=== PATIENT | female | born 1980 | race Caucasian/White ===

== ENCOUNTER → 2016-11-10 | Outpatient (REF) | payer BC ==
[~2016-11-10] MED LIST: /ESCI20TA OR; KLON0.5T OR; ZYPR5TAB OR
[2016-11-10 16:01] LABS: BASO # 0.1 K/mm3 (0.0-0.2); BASO % 0.8 % (0.0-1.0); EOS # 0.2 K/mm3 (0.0-0.50); EOS % 2.8 % (0.0-3.0); LARGE UNSTAINED CELL # 0.1 K/mm3 (0.0-0.4); LARGE UNSTAINED CELL % 1.3 % (0.0-4.0); LYMPH # 1.9 K/mm3 (1.5-4.5); LYMPH % 23.8 % (24.0-44.0); MEAN CORPUSCULAR HEMOGLOBIN 31.1 pg (27.0-33.0); MEAN CORPUSCULAR HGB CONC 33.7 g/dl (32.0-36.5); MEAN CORPUSCULAR VOLUME 92.3 fl (80.0-96.0); MONO # 0.3 K/mm3 (0.0-0.8); MONO % 3.7 % (0.0-5.0); NEUTROPHILS % 67.6 % (36.0-66.0); PLATELET COUNT, AUTOMATED 314 k/mm3 (150-450); RED CELL DISTRIBUTION WIDTH 12.5 % (11.5-14.5); WHITE BLOOD COUNT 7.5 K/mm3 (4.0-10.0)
[2016-11-10 16:26] LABS: ALBUMIN 3.6 GM/DL (3.2-5.2); ALBUMIN/GLOBULIN RATIO 1.03 (1.00-1.93); ALKALINE PHOSPHATASE 107 U/L (45-117); ALT/SGPT 17 U/L (12-78); ANION GAP 8 MEQ/L (8-16); AST/SGOT 13 U/L (15-37); BILIRUBIN,TOTAL 0.3 MG/DL (0.2-1.0); BLOOD UREA NITROGEN 12 MG/DL (7-18); CALCIUM LEVEL 8.5 MG/DL (8.5-10.1); CARBON DIOXIDE LEVEL 28 MEQ/L (21-32); CHLORIDE LEVEL 106 MEQ/L (98-107); CHOLESTEROL LEVEL 154 MG/DL (<200); CREATININE FOR GFR 0.89 MG/DL (0.55-1.02); FREE T4 0.99 NG/DL (0.76-1.46); GLOMERULAR FILTRATION RATE > 60.0 (>60); GLUCOSE, FASTING 86 MG/DL (70-105); POTASSIUM SERUM 4.4 MEQ/L (3.5-5.1); SODIUM LEVEL 142 MEQ/L (136-145); TOTAL PROTEIN 7.1 GM/DL (6.4-8.2); TRIGLYCERIDES LEVEL 74 MG/DL (<150)
== END ==
LOC: M SFHCSACK 08:42
PROVIDERS: ATTEND Physician Assistant
DX: Z00.00 Encounter for general adult medical examination without abnormal findings (principal)

== ENCOUNTER 2017-04-12 08:31 | Inpatient (IN) | payer BC ==
[~2017-04-12] VITALS: Ht 162.6 cm; Wt 85.0 kg
[2017-04-12 09:32] LABS: MEAN CORPUSCULAR HEMOGLOBIN 30.9 pg (27.0-33.0); MEAN CORPUSCULAR VOLUME 91.1 fl (80.0-96.0); RED CELL DISTRIBUTION WIDTH 12.9 % (11.5-14.5)
[2017-04-12 09:49] LABS: CONTROL LINE HCG INT CTR LINE PRESENT
[2017-04-12 09:51] LABS: METHADONE URINE NEGATIVE (NEGATIVE)
[2017-04-12 10:02] LABS: ALBUMIN 3.6 GM/DL (3.2-5.2); ALKALINE PHOSPHATASE 99 U/L (45-117); ALT/SGPT 26 U/L (12-78); ANION GAP 12 MEQ/L (8-16); AST/SGOT 12 U/L (15-37); BILIRUBIN,DIRECT < 0.1 MG/DL (0.0-0.2); BILIRUBIN,TOTAL 0.2 MG/DL (0.2-1.0); BLOOD UREA NITROGEN 8 MG/DL (7-18); CALCIUM LEVEL 8.2 MG/DL (8.5-10.1); CARBON DIOXIDE LEVEL 21 MEQ/L (21-32); CHLORIDE LEVEL 107 MEQ/L (98-107); CREATININE FOR GFR 0.83 MG/DL (0.55-1.02); GLOMERULAR FILTRATION RATE > 60.0 (>60); GLUCOSE, FASTING 111 MG/DL (70-105); POTASSIUM SERUM 4.6 MEQ/L (3.5-5.1); SODIUM LEVEL 140 MEQ/L (136-145); TOTAL PROTEIN 7.2 GM/DL (6.4-8.2)
[2017-04-12] MEDS ORDERED: DULO1CAP3 PO (12:52)
[2017-04-12] MEDS ORDERED: DIAZ2TAB PO (12:52)
[2017-04-12] MEDS ORDERED: BUSP15TA47 PO (12:52)
[2017-04-12] MEDS ORDERED: DULO1CAP2 PO (12:52)
[2017-04-12] MEDS ORDERED: TYLE500T78 PO (12:52)
[2017-04-12 13:40] VITALS: BP 133/69
[2017-04-12 14:00] VITALS: BP 133/69
[2017-04-12] MEDS ORDERED: MOM 30ML SUSPENSION UDC PO PRN (14:00)
[2017-04-12] MEDS ORDERED: MAALOX 30 ML SUSP *UDC PO PRN (14:00)
[2017-04-12] MEDS: ACETAMINOPHEN TAB 650MG DOSE (2X325MG) PO PRN (14:24)
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
[2017-04-12] MEDS ORDERED: LORazepam 2 MG TAB PO PRN (14:30)
[2017-04-12] MEDS: busPIRone 5 MG TAB PO SCH ×2 (15:39→20:30)
[2017-04-12] MEDS: PROPRANOLOL 10 MG TAB PO SCH ×2 (15:40→20:30)
[2017-04-12] MEDS ORDERED: busPIRone 10 MG TAB PO SCH (16:00)
[2017-04-12 18:00] VITALS: BP 132/86
[2017-04-12] MEDS: traZODone 50 MG TAB PO PRN (20:29)
[2017-04-12] MEDS: DULoxetine 30 MG CAP (CYMBALTA) PO SCH (20:30)
[2017-04-12] MEDS: PRAZOSIN 1 MG CAP PO SCH (20:31)
[2017-04-13 06:34] VITALS: BP 122/56
--- NOTE | 2017-04-13 08:19 | ECGEPIP ---
Stationary ECG Study [facility] - ED Test Date: 2017-04-12 Pat Name: MAICOL MORSE Department: Room: [place] [address] Gender: F [employer] Technician: dre : 1980 Requested By: Inna Ortiz Order Number: [id number] Reading MD: Inna Ortiz Measurements Intervals Rogers Rate: 114 P: 22 LA: 145 QRS: 6 QRSD: 86 T: 11 QT: 322 QTc: 444 Interpretive Statements SINUS TACHYCARDIA ABNORMAL RHYTHM ECG NO PRIOR FOR COMPARISON Electronically Signed On 04-13-2017 8:19:07 EDT by Inna Ortiz
[2017-04-13] MEDS: DULoxetine 30 MG CAP (CYMBALTA) PO SCH ×2 (08:25→20:57)
[2017-04-13] MEDS: PROPRANOLOL 10 MG TAB PO SCH ×2 (08:25→20:58)
[2017-04-13] MEDS: busPIRone 5 MG TAB PO SCH ×3 (08:25→20:57)
[2017-04-13] MEDS ORDERED: DULoxetine 30 MG CAP (CYMBALTA) PO SCH (09:00)
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
[2017-04-13 12:07] VITALS: BP 122/56
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
[2017-04-13 18:00] VITALS: BP 107/52
[2017-04-13] MEDS: PRAZOSIN 1 MG CAP PO SCH (20:57)
[2017-04-13] MEDS: traZODone 50 MG TAB PO PRN (21:30)
[2017-04-14 06:51] LABS: MEAN CORPUSCULAR HGB CONC 33.7 g/dl (32.0-36.5); RED CELL DISTRIBUTION WIDTH 12.7 % (11.5-14.5); WHITE BLOOD COUNT 6.9 10^3/uL (4.0-10.0)
[2017-04-14 06:52] VITALS: BP 102/51
[2017-04-14 07:50] VITALS: BP 102/51
[2017-04-14] MEDS: busPIRone 5 MG TAB PO SCH ×3 (08:50→21:18)
[2017-04-14] MEDS: DULoxetine 30 MG CAP (CYMBALTA) PO SCH ×2 (08:50→21:18)
[2017-04-14] MEDS: PROPRANOLOL 10 MG TAB PO SCH ×2 (08:51→21:18)
[2017-04-14] MEDS ORDERED: INFLUENZA QUADRIVALENT PF VACCINE 0.5ML SYRINGE (90686) IM ONE (09:00)
--- NOTE | 2017-04-14 14:52 | MHIPNPDOC ---
[facility] Progress Note Progress Note DATE OF SERVICE: 04/14/17 HISTORY: . Patient with history of PTSD and depressive symptoms , currently denied any symptoms of depression, reported feeling better. No suicidal ideas. No acute symptoms of PTSD. Patient denied any side effects of medications. According to the discharge plan. She will go on outpatient rehabilitation next week. After meeting with VITAL SIGNS: See below. NEW TEST RESULTS: . CURRENT MEDICATIONS: See below. MENTAL STATUS EXAMINATION: General appearance: Patient is a 36-year old female, who appears younger than stated age, wearing hospital gown and pj bottoms, well groomed, fair eye contact , cooperative. Speech: spontaneous Thought processes: goal directed Thought content: appropriate. Abstract reasoning and computation: good. Description of associations: good. Description of abnormal or psychotic thoughts: denies plan for suicide but wishes she would , no psychotic symptoms. Judgment: fair Insight: limited Orientation: well oriented in all spheres Recent and remote memory: intact Attention span and concentration: good. Fund of knowledge: full. Mood:tired Affect: congruent DIAGNOSES: 1. . PTSD 2. . Depressive disorder 3. . MANAGEMENT PLAN: . Continue current medications. Discharge plan during the week TIME SPENT: 25 minutes. Vital Signs Vital Signs Date Time Temp Pulse Resp B/P (MAP) Pulse Ox O2 Delivery O2 Flow Rate FiO2 04/14/17 08:51 76 124/60 04/14/17 06:52 99.1 16 04/13/17 12:06 Room Air 04/12/17 13:40 100 Laboratory Data CBC/BMP Laboratory Tests 04/14/17 06:12 Red Blood Count 4.49, Mean Corpuscular Volume 92.0, Mean Corpuscular Hemoglobin 31.0, Mean Corpuscular Hemoglobin Concent 33.7, Red Cell Distribution Width 12.7 Current Medications Current Medications Acetaminophen (Tylenol Tab) 650 mg Q6HP PRN PO HEADACHE or DISCOMFORT Last administered on 04/12/17t 14:24; Start 04/12/17 at 14:00; Stop 05/12/17 at 13:59 Al Hydrox/Mg Hydrox/Simethicone (Mylanta) 30 ml Q4HP PRN PO HEARTBURN/ INDIGESTION; Start 04/12/17 at 14:00; Stop 05/12/17 at 13:59 Buspirone HCl (Buspar) 5 mg TID PO Last administered on 04/14/17 08:50; Start 04/12/17 at 16:00; Stop 05/12/17 at 15:59 Buspirone HCl (Buspar) 10 mg TID PO ; Start 04/12/17 at 16:00; Stop 04/12/17 at 16:00; Status DC Duloxetine HCl (Cymbalta) 30 mg QAM PO ; Start 04/13/17 at 09:00; Stop 04/13/17 at 09:00; Status DC Duloxetine HCl (Cymbalta) 60 mg QAM PO Last administered on 04/14/17 08:50; Start 04/13/17 at 09:00; Stop 05/13/17 at 08:59 Duloxetine HCl (Cymbalta) 60 mg QHS PO Last administered on 04/13/17 20:57; Start 04/12/17 at 21:00; Stop 05/12/17 at 20:59 Home Med (Med Rec Complete!) ASDIRECTED XX ; Start 04/12/17 at 13:00; Stop 04/12/17 at 13:00; Status DC Lorazepam (Ativan) 2 mg Q8HP PRN PO if meets CIWA protocol; Start 04/12/17 at 14:30; Stop 04/19/17 at 14:29 Magnesium Hydroxide (Milk Of Magnesia) 30 ml DAILYPRN PRN PO CONSTIPATION; Start 04/12/17 at 14:00; Stop 05/12/17 at 13:59 Prazosin HCl (Minipress) 1 mg QHS PO Last administered on 04/13/17 20:57; Start 04/12/17 at 21:00; Stop 05/12/17 at 20:59 Propranolol HCl (Inderal) 10 mg BID PO Last administered on 04/14/17 08:51; Start 04/13/17 at 21:00; Stop 05/12/17 at 15:59 Propranolol HCl (Inderal) 10 mg TID PO Last administered on 04/13/17 08:25; Start 04/12/17 at 16:00; Stop 04/13/17 at 13:51; Status DC Trazodone HCl (Desyrel) 50 mg QHSP PRN PO INSOMNIA Last administered on 21:30; Start 04/12/17 at 14:00; Stop 05/12/17 at 13:59 Allergies Coded Allergies: Codeine (Verified Allergy, Mild, RASH, VOMITING, DIZZINESS,HIVES, 10/09/12) ANA AMADOR MD Apr 14, 2017 14:49
[2017-04-14] MEDS: ACETAMINOPHEN TAB 650MG DOSE (2X325MG) PO PRN (14:58)
[2017-04-14] MEDS: PRAZOSIN 1 MG CAP PO SCH (21:18)
[2017-04-14] MEDS: traZODone 50 MG TAB PO PRN (21:18)
[2017-04-15 06:31] VITALS: BP 116/59
[2017-04-15] MEDS: DULoxetine 30 MG CAP (CYMBALTA) PO SCH ×2 (08:54→20:23)
[2017-04-15] MEDS: busPIRone 5 MG TAB PO SCH ×3 (08:54→20:23)
[2017-04-15] MEDS: PROPRANOLOL 10 MG TAB PO SCH ×2 (08:54→20:23)
[2017-04-15] MEDS: ACETAMINOPHEN TAB 650MG DOSE (2X325MG) PO PRN (12:14)
--- NOTE | 2017-04-15 15:52 | MHIPNPDOC ---
[facility] Progress Note Progress Note DATE OF SERVICE: 04/15/17 HISTORY: . Patient with history of PTSD and depressive symptoms , currently denied any symptoms of depression, reported feeling better. No suicidal ideas. No acute symptoms of PTSD. Patient denied any side effects of medications. VITAL SIGNS: See below. NEW TEST RESULTS: . CURRENT MEDICATIONS: See below. MENTAL STATUS EXAMINATION: General appearance: Patient is a 36-year old female, who appears younger than stated age, well groomed, fair eye contact, cooperative. Speech: spontaneous Thought processes: goal directed Thought content: appropriate. Abstract reasoning and computation: good. Description of associations: good. Description of abnormal or psychotic thoughts: denies plan for suicide but wishes she would , no psychotic symptoms. Judgment: fair Insight: limited Orientation: well oriented in all spheres Recent and remote memory: intact Attention span and concentration: good. Fund of knowledge: full. Mood:tired Affect: congruent DIAGNOSES: 1. . PTSD 2. . Depressive disorder 3. . MANAGEMENT PLAN: . Continue current medications. Discharge plan during the week TIME SPENT: 25 minutes. Vital Signs Vital Signs Date Time Temp Pulse Resp B/P (MAP) Pulse Ox O2 Delivery O2 Flow Rate FiO2 04/15/17 08:54 77 119/56 04/15/17 06:31 98.1 16 04/13/17 12:06 Room Air 04/12/17 13:40 100 Current Medications Current Medications Acetaminophen (Tylenol Tab) 650 mg Q6HP PRN PO HEADACHE or DISCOMFORT Last administered on 04/15/17 12:14; Start 04/12/17 at 14:00; Stop 05/12/17 at 13:59 Al Hydrox/Mg Hydrox/Simethicone (Mylanta) 30 ml Q4HP PRN PO HEARTBURN/ INDIGESTION; Start 04/12/17 at 14:00; Stop 05/12/17 at 13:59 Buspirone HCl (Buspar) 5 mg TID PO Last administered on 04/15/17 15:06; Start 04/12/17 at 16:00; Stop 05/12/17 at 15:59 Buspirone HCl (Buspar) 10 mg TID PO ; Start 04/12/17 at 16:00; Stop 04/12/17 at 16:00; Status DC Duloxetine HCl (Cymbalta) 30 mg QAM PO ; Start 04/13/17 at 09:00; Stop 04/13/17 at 09:00; Status DC Duloxetine HCl (Cymbalta) 60 mg QAM PO Last administered on 04/15/17 08:54; Start 04/13/17 at 09:00; Stop 05/13/17 at 08:59 Duloxetine HCl (Cymbalta) 60 mg QHS PO Last administered on 04/14/17 21:18; Start 04/12/17 at 21:00; Stop 05/12/17 at 20:59 Home Med (Med Rec Complete!) ASDIRECTED XX ; Start 04/12/17 at 13:00; Stop 04/12/17 at 13:00; Status DC Lorazepam (Ativan) 2 mg Q8HP PRN PO if meets CIWA protocol; Start 04/12/17 at 14:30; Stop 04/19/17 at 14:29 Magnesium Hydroxide (Milk Of Magnesia) 30 ml DAILYPRN PRN PO CONSTIPATION; Start 04/12/17 at 14:00; Stop 05/12/17 at 13:59 Prazosin HCl (Minipress) 1 mg QHS PO Last administered on 04/14/17 21:18; Start 04/12/17 at 21:00; Stop 05/12/17 at 20:59 Propranolol HCl (Inderal) 10 mg BID PO Last administered on 04/15/17 08:54; Start 04/13/17 at 21:00; Stop 05/12/17 at 15:59 Propranolol HCl (Inderal) 10 mg TID PO Last administered on 04/13/17 08:25; Start 04/12/17 at 16:00; Stop 04/13/17 at 13:51; Status DC Trazodone HCl (Desyrel) 50 mg QHSP PRN PO INSOMNIA Last administered on 21:18; Start 04/12/17 at 14:00; Stop 05/12/17 at 13:59 Allergies Coded Allergies: Codeine (Verified Allergy, Mild, RASH, VOMITING, DIZZINESS,HIVES, 10/09/12) ANA AMADOR MD Apr 15, 2017 15:52
[2017-04-15 18:00] VITALS: BP 139/62
[2017-04-15] MEDS: PRAZOSIN 1 MG CAP PO SCH (20:23)
[2017-04-15] MEDS: traZODone 50 MG TAB PO PRN (20:23)
[2017-04-16 06:59] VITALS: BP 110/53
[2017-04-16] MEDS: PROPRANOLOL 10 MG TAB PO SCH ×2 (08:20→22:14)
[2017-04-16] MEDS: busPIRone 5 MG TAB PO SCH (08:20)
[2017-04-16] MEDS: DULoxetine 30 MG CAP (CYMBALTA) PO SCH ×2 (08:21→22:14)
[2017-04-16] MEDS: busPIRone 10 MG TAB PO SCH ×3 (09:17→22:14)
[2017-04-16] MEDS: hydrOXYzine 25 MG TAB PO PRN ×2 (11:36→19:03)
--- NOTE | 2017-04-16 17:17 | MHIPNPDOC ---
[facility] Progress Note Progress Note DATE OF SERVICE: 04/16/17 HISTORY: day 5 of admission for SI and alcohol dependence. VITAL SIGNS: See below. NEW TEST RESULTS: na CURRENT MEDICATIONS: See below. MENTAL STATUS EXAMINATION: General appearance: Patient is a 36-year old female, who appears younger than stated age, well groomed, fair eye contact, cooperative. Speech: spontaneous Thought processes: goal directed Thought content: appropriate. Abstract reasoning and computation: good. Description of associations: good. Description of abnormal or psychotic thoughts: denies plan for suicide but wishes she would , no psychotic symptoms. Judgment: fair Insight: limited Orientation: well oriented in all spheres Recent and remote memory: intact Attention span and concentration: good. Fund of knowledge: full. Mood:tired Affect: congruent DIAGNOSES: 1. PTSD 2. Depressive disorder, unspecified 3. Substance use disorder ASSESSMENT:Malena has been reporting difficulty with anxiety. She is attending programming and acquiring new adaptation skills. She states she is committed to sobriety and is willing to attend [facility]. She identifies family members as support but is encouraged to expand this network to include people also in recovery from substance abuse. If she is not willing to attend AA it is recommended to her that she read AA material to help her understand the disease of alcoholism and the challenges of leading a sober life. Pt denies thoughts or intentions to harm self or others. She does not demonstrate any psychotic symptoms. Her mood is improving but anxiety remains problematic. Nightmares have improved but sleep remains elusive sometimes. Educated pt on impact of alcohol on the brain and sleep. MANAGEMENT PLAN: increase BuSpar to 10 mg tid, pt is tolerating propranolol and thinks this has been very helpful to her. Use of prn Atarax encouraged. TIME SPENT: 25 minutes. Vital Signs Vital Signs Date Time Temp Pulse Resp B/P (MAP) Pulse Ox O2 Delivery O2 Flow Rate FiO2 04/16/17 08:20 71 110/53 04/16/17 06:59 97.1 16 Room Air 04/12/17 13:40 100 Current Medications Current Medications Acetaminophen (Tylenol Tab) 650 mg Q6HP PRN PO HEADACHE or DISCOMFORT Last administered on 04/15/17t 12:14; Start 04/12/17 at 14:00; Stop 05/12/17 at 13:59 Al Hydrox/Mg Hydrox/Simethicone (Mylanta) 30 ml Q4HP PRN PO HEARTBURN/ INDIGESTION; Start 04/12/17 at 14:00; Stop 05/12/17 at 13:59 Buspirone HCl (Buspar) 5 mg TID PO Last administered on 04/16/17 08:20; Start 04/12/17 at 16:00; Stop 04/16/17 at 09:08; Status DC Buspirone HCl (Buspar) 10 mg TID PO ; Start 04/12/17 at 16:00; Stop 04/12/17 at 16:00; Status DC Buspirone HCl (Buspar) 10 mg TID PO Last administered on 04/16/17 15:43; Start 04/16/17 at 09:00; Stop 05/16/17 at 08:59 Duloxetine HCl (Cymbalta) 30 mg QAM PO ; Start 04/13/17 at 09:00; Stop 04/13/17 at 09:00; Status DC Duloxetine HCl (Cymbalta) 60 mg QAM PO Last administered on 04/16/17 08:21; Start 04/13/17 at 09:00; Stop 05/13/17 at 08:59 Duloxetine HCl (Cymbalta) 60 mg QHS PO Last administered on 04/15/17 20:23; Start 04/12/17 at 21:00; Stop 05/12/17 at 20:59 Home Med (Med Rec Complete!) ASDIRECTED XX ; Start 04/12/17 at 13:00; Stop 04/12/17 at 13:00; Status DC Hydroxyzine HCl (Atarax) 25 mg Q6HP PRN PO ANXIETY Last administered on 11:36; Start 04/16/17 at 09:15; Stop 05/16/17 at 09:14 Lorazepam (Ativan) 2 mg Q8HP PRN PO if meets CIWA protocol; Start 04/12/17 at 14:30; Stop 04/19/17 at 14:29 Magnesium Hydroxide (Milk Of Magnesia) 30 ml DAILYPRN PRN PO CONSTIPATION; Start 04/12/17 at 14:00; Stop 05/12/17 at 13:59 Prazosin HCl (Minipress) 1 mg QHS PO Last administered on 04/15/17 20:23; Start 04/12/17 at 21:00; Stop 05/12/17 at 20:59 Propranolol HCl (Inderal) 10 mg BID PO Last administered on 04/16/17 08:20; Start 04/13/17 at 21:00; Stop 05/12/17 at 15:59 Propranolol HCl (Inderal) 10 mg TID PO Last administered on 04/13/17 08:25; Start 04/12/17 at 16:00; Stop 04/13/17 at 13:51; Status DC Trazodone HCl (Desyrel) 50 mg QHSP PRN PO INSOMNIA Last administered on 20:23; Start 04/12/17 at 14:00; Stop 05/12/17 at 13:59 Allergies Coded Allergies: Codeine (Verified Allergy, Mild, RASH, VOMITING, DIZZINESS,HIVES, 10/09/12) Gina Villegas Apr 16, 2017 17:17
[2017-04-16 18:00] VITALS: BP 122/69
[2017-04-16] MEDS: ACETAMINOPHEN TAB 650MG DOSE (2X325MG) PO PRN (19:03)
[2017-04-16] MEDS: traZODone 50 MG TAB PO PRN (22:14)
[2017-04-16] MEDS: PRAZOSIN 1 MG CAP PO SCH (22:15)
[2017-04-17 06:49] VITALS: BP 102/57
[2017-04-17 07:50] VITALS: BP 102/57
[2017-04-17] MEDS: busPIRone 10 MG TAB PO SCH ×3 (08:31→21:27)
[2017-04-17] MEDS: PROPRANOLOL 10 MG TAB PO SCH ×2 (08:31→21:28)
[2017-04-17] MEDS: DULoxetine 30 MG CAP (CYMBALTA) PO SCH ×2 (08:32→21:28)
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
[2017-04-17] MEDS: hydrOXYzine 25 MG TAB PO PRN (12:58)
[2017-04-17 18:00] VITALS: BP 114/56
[2017-04-17] MEDS: traZODone 50 MG TAB PO PRN (21:27)
[2017-04-17] MEDS: PRAZOSIN 1 MG CAP PO SCH (21:28)
[2017-04-18 06:00] VITALS: BP 109/55
[2017-04-18 08:29] VITALS: BP 120/68
[2017-04-18] MEDS: busPIRone 10 MG TAB PO SCH (08:29)
[2017-04-18] MEDS: PROPRANOLOL 10 MG TAB PO SCH (08:29)
[2017-04-18] MEDS: hydrOXYzine 25 MG TAB PO PRN (08:30)
[2017-04-18] MEDS: DULoxetine 30 MG CAP (CYMBALTA) PO SCH (08:30)
[2017-04-18] MEDS ORDERED: HYDR-3363 PO (09:28)
[2017-04-18] MEDS ORDERED: DULO30CA PO ×2 (09:28)
[2017-04-18] MEDS ORDERED: PROP10TAB PO (09:28)
[2017-04-18] MEDS ORDERED: BUSP10TA PO (09:28)
[2017-04-18] MEDS ORDERED: MINI1CAP PO (09:28)
[2017-04-18] MEDS ORDERED: TRAZO50TA PO (09:28)
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
== END 2017-04-18 11:35 | disposition home or self-care (01) | DRG 755 ==
LOC: M ED 08:31 → M ED INP 11:45 → M PSY 13:40
PROVIDERS: ADMIT Psychiatry & Neurology Psychiatry; ATTEND Psychiatry & Neurology Psychiatry
DX: F43.10 Post-traumatic stress disorder, unspecified (principal); F32.9 Major depressive disorder, single episode, unspecified; F19.10 Other psychoactive substance abuse, uncomplicated; D72.829 Elevated white blood cell count, unspecified; Z79.899 Other long term (current) drug therapy

== ENCOUNTER → 2017-04-19 | Outpatient (CLI) | payer BC ==
[~2017-04-19] MED LIST changes: +BUSP10TA PO; +BUSP15TA47 PO; +DIAZ2TAB PO; +DULO1CAP2 PO; +DULO1CAP3 PO; +DULO30CA PO; +HYDR-3363 PO; +MINI1CAP PO; +PROP10TAB PO; +TRAZO50TA PO; +TYLE500T78 PO
== END ==
LOC: M OUTALCOH 08:05
PROVIDERS: ATTEND Psychiatry & Neurology Psychiatry
DX: F10.20 Alcohol dependence, uncomplicated (principal); F14.20 Cocaine dependence, uncomplicated

== ENCOUNTER 2017-06-06 11:00 | Outpatient (RCR) | payer BC | END 2017-06-07 | LOC: M OUTALCOH 11:00 | PROVIDERS: ATTEND Psychiatry & Neurology Psychiatry | DX: F10.20 Alcohol dependence, uncomplicated (principal); F14.20 Cocaine dependence, uncomplicated; F17.200 Nicotine dependence, unspecified, uncomplicated ==

== ENCOUNTER 2017-06-12 10:00 | Outpatient (RCR) | payer BC | END 2017-07-08 | LOC: M OUTALCOH 06-13 16:00 | DX: F10.20 Alcohol dependence, uncomplicated (principal); F14.20 Cocaine dependence, uncomplicated; F17.200 Nicotine dependence, unspecified, uncomplicated ==

== ENCOUNTER 2017-07-17 16:00 | Outpatient (RCR) | payer BC | END 2017-08-08 | LOC: M OUTALCOH 07-19 10:00 | DX: F10.20 Alcohol dependence, uncomplicated (principal); F14.20 Cocaine dependence, uncomplicated; F17.200 Nicotine dependence, unspecified, uncomplicated ==

== ENCOUNTER → 2017-07-23 | Outpatient (REF) | payer BC ==
[2017-07-23 15:18] LABS: BASO # 0.1 10^3/uL (0.0-0.2); BASO % 0.6 % (0.0-1.0); EOS # 0.2 10^3/uL (0.0-0.50); EOS % 2.3 % (0.0-3.0); HEMATOCRIT 43.4 % (36.0-47.0); HEMOGLOBIN 14.5 g/dl (12.0-16.0); IMMATURE GRANULOCYTE % 0.4 % (0-0); LYMPH # 2.2 10^3/uL (1.5-4.5); LYMPH % 21.4 % (24.0-44.0); MEAN CORPUSCULAR HGB CONC 33.4 g/dl (32.0-36.5); MEAN CORPUSCULAR VOLUME 89.7 fl (80.0-96.0); MONO # 0.5 10^3/uL (0.0-0.8); MONO % 4.5 % (0.0-5.0); NEUTROPHILS # 7.1 10^3/uL (1.8-7.7); NEUTROPHILS % 70.8 % (36.0-66.0); PLATELET COUNT, AUTOMATED 309 10^3/uL (150-450); RED BLOOD COUNT 4.84 10^6/uL (4.00-5.40); RED CELL DISTRIBUTION WIDTH 12.4 % (11.5-14.5)
[2017-07-23 15:20] LABS: ALBUMIN 3.9 GM/DL (3.2-5.2); ALBUMIN/GLOBULIN RATIO 1.15 (1.00-1.93); ALKALINE PHOSPHATASE 117 U/L (45-117); ALT/SGPT 22 U/L (12-78); ANION GAP 7 MEQ/L (8-16); AST/SGOT 15 U/L (7-37); BILIRUBIN,TOTAL 0.4 MG/DL (0.2-1.0); BLOOD UREA NITROGEN 14 MG/DL (7-18); CALCIUM LEVEL 8.9 MG/DL (8.5-10.1); CARBON DIOXIDE LEVEL 26 MEQ/L (21-32); CHLORIDE LEVEL 107 MEQ/L (98-107); CHOLESTEROL LEVEL 150 MG/DL (<200); CREATININE FOR GFR 1.03 MG/DL (0.55-1.02); FREE T4 1.14 NG/DL (0.76-1.46); GLOMERULAR FILTRATION RATE > 60.0 (>60); GLUCOSE, FASTING 89 MG/DL (70-105); HDL CHOLESTEROL 40 MG/DL (>40); LDL CHOLESTEROL 89.4 MG/DL (<100); NON-HDL-C 110 MG/DL; POTASSIUM SERUM 4.4 MEQ/L (3.5-5.1); SODIUM LEVEL 140 MEQ/L (136-145); TOTAL 25(OH) VITAMIN D 40.1 NG/ML (30.0-100.0); TOTAL PROTEIN 7.3 GM/DL (6.4-8.2); TRIGLYCERIDES LEVEL 103 MG/DL (<150)
[2017-07-23 15:49] LABS: POS COUNT POS FLAG
== END ==
LOC: M SFHCSACK 09:33
DX: F41.1 Generalized anxiety disorder (principal); Z13.220 Encounter for screening for lipoid disorders; Z13.29 Encounter for screening for other suspected endocrine disorder; E55.9 Vitamin D deficiency, unspecified

== ENCOUNTER → 2017-11-07 | Outpatient (REF) | payer BC | LOC: M LAB REF 12:05 | DX: D22.5 Melanocytic nevi of trunk (principal) | CPT/HCPCS: 88305 ==

== ENCOUNTER 2017-11-28 13:57 | Inpatient (IN) | payer BC ==
[2017-11-28 14:31] LABS: HEMOGLOBIN 14.9 g/dl (12.0-15.5); MEAN CORPUSCULAR HEMOGLOBIN 30.8 pg (27.0-33.0); MEAN CORPUSCULAR HGB CONC 34.7 g/dl (32.0-36.5); MEAN CORPUSCULAR VOLUME 88.8 fl (80.0-96.0); PLATELET COUNT, AUTOMATED 297 10^3/uL (150-450); RED BLOOD COUNT 4.84 10^6/uL (4.00-5.40); RED CELL DISTRIBUTION WIDTH 12.6 % (11.5-14.5)
[2017-11-28 14:46] LABS: CONTROL LINE HCG INT CTR LINE PRESENT; HCG, SERUM QUALITATIVE NEGATIVE (NEGATIVE)
[2017-11-28 14:51] LABS: AMPHETAMINES LEVEL URINE NEGATIVE (NEGATIVE); BARBITURATES URINE NEGATIVE (NEGATIVE); BENZODIAZEPINES URINE POSITIVE (NEGATIVE); CANNABINOIDS URINE NEGATIVE (NEGATIVE); COCAINE METABOLITE URINE POSITIVE (NEGATIVE); METHADONE URINE NEGATIVE (NEGATIVE); OPIATES URINE NEGATIVE (NEGATIVE); PHENCYCLIDINE URINE NEGATIVE (NEGATIVE)
[2017-11-28 15:00] LABS: ACETAMINOPHEN LEVEL < 2.0 UG/ML (10.0-30.0); ALBUMIN 3.8 GM/DL (3.2-5.2); ALBUMIN/GLOBULIN RATIO 1.15 (1.00-1.93); ALKALINE PHOSPHATASE 98 U/L (45-117); ALT/SGPT 29 U/L (12-78); ANION GAP 6 MEQ/L (8-16); AST/SGOT 19 U/L (7-37); BILIRUBIN,DIRECT 0.1 MG/DL (0.0-0.2); BILIRUBIN,TOTAL 0.4 MG/DL (0.2-1.0); BLOOD UREA NITROGEN 8 MG/DL (7-18); CALCIUM LEVEL 8.6 MG/DL (8.5-10.1); CARBON DIOXIDE LEVEL 27 MEQ/L (21-32); CHLORIDE LEVEL 108 MEQ/L (98-107); CREATININE FOR GFR 1.15 MG/DL (0.55-1.30); ETHYL ALCOHOL (ETHANOL) < 0.003 % (0.000-0.010); GLOMERULAR FILTRATION RATE 56.5 (>60); GLUCOSE, FASTING 98 MG/DL (70-100); POTASSIUM SERUM 4.3 MEQ/L (3.5-5.1); SALICYLATE LEVEL 2.4 MG/DL (5.0-30.0); SODIUM LEVEL 141 MEQ/L (136-145); TOTAL PROTEIN 7.1 GM/DL (6.4-8.2)
[2017-11-28] MEDS ORDERED: MAALOX 30 ML SUSP *UDC PO (16:45)
[2017-11-28] MEDS ORDERED: ACETAMINOPHEN TAB 650MG DOSE (2X325MG) PO (16:45)
[2017-11-28] MEDS ORDERED: MOM 30ML SUSPENSION UDC PO (16:45)
[2017-11-28] MEDS: PRAZOSIN 1 MG CAP PO (20:35)
[2017-11-28] MEDS: TEMAZEPAM 15 MG CAP PO (20:35)
[2017-11-28] MEDS: ACETAMINOPHEN 500 MG TAB PO (20:36)
[2017-11-29] MEDS: TEMAZEPAM 15 MG CAP PO (21:10)
[2017-11-29] MEDS: PRAZOSIN 1 MG CAP PO (21:11)
[2017-11-30] MEDS: ACETAMINOPHEN 500 MG TAB PO (08:07)
[2017-11-30 09:16] LABS: ANION GAP 6 MEQ/L (8-16); BLOOD UREA NITROGEN 9 MG/DL (7-18); CALCIUM LEVEL 9.1 MG/DL (8.5-10.1); CARBON DIOXIDE LEVEL 29 MEQ/L (21-32); CHLORIDE LEVEL 107 MEQ/L (98-107); CREATININE FOR GFR 1.12 MG/DL (0.55-1.30); GLOMERULAR FILTRATION RATE 58.3 (>60); GLUCOSE, FASTING 96 MG/DL (70-100); POTASSIUM SERUM 4.4 MEQ/L (3.5-5.1); SODIUM LEVEL 142 MEQ/L (136-145)
[2017-11-30] MEDS: LORazepam 0.5 MG TAB PO (11:17)
[2017-11-30] MEDS: TEMAZEPAM 15 MG CAP PO (21:07)
[2017-11-30] MEDS: PRAZOSIN 1 MG CAP PO (21:08)
[2017-11-30] MEDS: traZODone 50 MG TAB PO (22:03)
[2017-12-01] MEDS: PRAZOSIN 1 MG CAP PO (20:44)
[2017-12-01] MEDS: ARIPiprazole 15 MG TAB (AbiLIFY) PO (20:44)
[2017-12-01] MEDS: DOXEPIN 25 MG CAP PO (21:14)
[2017-12-02] MEDS: ARIPiprazole 15 MG TAB (AbiLIFY) PO ×2 (08:05→20:46)
[2017-12-02] MEDS: hydrOXYzine 50 MG TAB PO (16:01)
[2017-12-02] MEDS: DOXEPIN 25 MG CAP PO (21:33)
[2017-12-02] MEDS: PRAZOSIN 1 MG CAP PO (21:34)
[2017-12-03] MEDS: ARIPiprazole 15 MG TAB (AbiLIFY) PO ×2 (08:09→20:59)
[2017-12-03] MEDS: ACETAMINOPHEN 500 MG TAB PO (10:23)
[2017-12-03] MEDS: hydrOXYzine 50 MG TAB PO (16:38)
[2017-12-03] MEDS: PRAZOSIN 1 MG CAP PO (20:58)
[2017-12-03] MEDS: DOXEPIN 25 MG CAP PO (20:58)
[2017-12-04] MEDS: ARIPiprazole 15 MG TAB (AbiLIFY) PO ×2 (08:20→21:03)
[2017-12-04] MEDS: PILL CRUSHER/CUTTER 1 EACH XX (08:20)
[2017-12-04] MEDS: hydrOXYzine 50 MG TAB PO (14:25)
[2017-12-04] MEDS: ACETAMINOPHEN 500 MG TAB PO (14:25)
[2017-12-04] MEDS: DOXEPIN 25 MG CAP PO (21:03)
[2017-12-04] MEDS: PRAZOSIN 1 MG CAP PO (21:03)
[2017-12-05] MEDS: PILL CRUSHER/CUTTER 1 EACH XX (08:16)
[2017-12-05] MEDS: ARIPiprazole 15 MG TAB (AbiLIFY) PO (08:16)
== END 2017-12-05 14:04 | disposition home or self-care (01) | DRG 753 ==
LOC: M ED 13:57 → M ED INP 16:36 → M PSY 17:30
DX: F31.9 Bipolar disorder, unspecified (principal); R45.851 Suicidal ideations; F43.10 Post-traumatic stress disorder, unspecified; F41.1 Generalized anxiety disorder; F10.10 Alcohol abuse, uncomplicated; F19.10 Other psychoactive substance abuse, uncomplicated; Z79.899 Other long term (current) drug therapy; Z88.5 Allergy status to narcotic agent; Z91.5 Personal history of self-harm

== ENCOUNTER 2019-12-21 09:13 | Emergency (ER) | payer BC, SELFPAY ==
[~2019-12-21] VITALS: Ht 162.6 cm; Wt 64.2 kg
[~2019-12-21 09:13] MED LIST changes: -/ESCI20TA OR; +ARIP1TAB10 PO; +ATIV1TAB10 PO; +DOXE75CA2 PO; -DULO1CAP2 PO; -DULO1CAP3 PO; +DULO1CAP5 PO; +DULO1CAP6 PO; -DULO30CA PO; +DULO30CA9 PO; +HYDR1TAB33 PO; +LEXA1TAB2 OR; +NALT50TA4 PO; +PRAZ1CAP PO; +PROP10TA55 PO; -PROP10TAB PO; +PROP20TA72 PO; +REST15CA PO; +TRAZ1TAB10 PO; -TRAZO50TA PO; +ZIPR80CA12 PO
[2019-12-21] MEDS ORDERED: NS 500 ML IV ONE ×2 (09:45→13:15)
[2019-12-21 10:06] LABS: BASO # 0.1 10^3/uL (0.0-0.2); BASO % 0.5 % (0.0-1.0); EOS # 0.1 10^3/uL (0.0-0.5); HEMATOCRIT 42.5 % (36.0-47.0); HEMOGLOBIN 14.6 g/dl (12.0-15.5); LYMPH % 29.3 % (24.0-44.0); MEAN CORPUSCULAR HEMOGLOBIN 32.9 pg (27.0-33.0); MEAN CORPUSCULAR HGB CONC 34.4 g/dl (32.0-36.5); MEAN CORPUSCULAR VOLUME 95.7 fl (80.0-96.0); MONO # 0.4 10^3/uL (0.0-0.8); NEUTROPHILS # 6.7 10^3/uL (1.5-8.5); NEUTROPHILS % 64.9 % (36.0-66.0); PLATELET COUNT, AUTOMATED 319 10^3/uL (150-450); RED BLOOD COUNT 4.44 10^6/uL (4.00-5.40); WHITE BLOOD COUNT 10.3 10^3/uL (4.0-10.0)
[2019-12-21] MEDS ORDERED: MORPHINE 2 MG/ML 1ML VIAL (J2270) IV ONE ×3 (10:15→13:30)
[2019-12-21 10:17] LABS: INR 1.04; PROTHROMBIN TIME 13.3 SECONDS (11.8-14.0)
[2019-12-21 10:18] LABS: PARTIAL THROMBOPLASTIN TIME 26.3 SECONDS (25.0-38.4)
[2019-12-21 10:44] LABS: ALBUMIN 3.9 GM/DL (3.2-5.2); ALT/SGPT 18 U/L (12-78); AMYLASE 107 U/L (25-115); BILIRUBIN,DIRECT 0.1 MG/DL (0.0-0.2); BILIRUBIN,TOTAL 0.3 MG/DL (0.2-1.0); CK-MB VALUE MASS < 1.0 NG/ML (<3.6); CPK CREATINE PHOSPHOKINASE 111 U/L (26-192); ETHYL ALCOHOL (ETHANOL) 0.168 % (0.000-0.010); LIPASE 108 U/L (73-393); TOTAL PROTEIN 7.6 GM/DL (6.4-8.2); TROPONIN I < 0.02 NG/ML (< 0.10)
[2019-12-21] MEDS ORDERED: ISOVUE-370 76% 100ML VIAL As Ordered ONE (10:45)
[2019-12-21 11:02] LABS: AMPHETAMINES LEVEL URINE NEGATIVE (NEGATIVE); BARBITURATES URINE NEGATIVE (NEGATIVE); BENZODIAZEPINES URINE NEGATIVE (NEGATIVE); CANNABINOIDS URINE NEGATIVE (NEGATIVE); COCAINE METABOLITE URINE POSITIVE (NEGATIVE); METHADONE URINE NEGATIVE (NEGATIVE); OPIATES URINE NEGATIVE (NEGATIVE); PHENCYCLIDINE URINE NEGATIVE (NEGATIVE)
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
[2019-12-21 13:21] VITALS: BP 111/63
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
== END 2019-12-21 13:33 | disposition short-term general hospital (02) ==
LOC: M ED 09:13
DX: S06.360A Traumatic hemorrhage of cerebrum, unspecified, without loss of consciousness, initial encounter (principal); Y07.03 Male partner, perpetrator of maltreatment and neglect; Y04.8XXA Assault by other bodily force, initial encounter; F41.9 Anxiety disorder, unspecified; F33.9 Major depressive disorder, recurrent, unspecified; Z88.5 Allergy status to narcotic agent
CPT/HCPCS: 70450; 71260; 72125; 74177; 80047; 80076; 80307; 81001; 82150; 82550; 82553; 83605; 83690; 84484; 84702; 85025; 85610; 85730; 86850; 86900; 86901; 93041; 94760; 96361; 96374; 96376; 99291; G0480; J2270; Q9967

== ENCOUNTER 2020-05-20 14:44 | Emergency (ER) | payer OTHER, SELFPAY ==
[~2020-05-20] VITALS: Ht 162.6 cm; Wt 73.4 kg
[2020-05-20] MEDS ORDERED: METOCLOPRAMIDE INJ 10MG/2ML VIAL (J2765 PER 1) IV ONE (16:45)
[2020-05-20 17:29] LABS: BASO % 0.6 % (0.0-1.0); EOS # 0.1 10^3/uL (0.0-0.5); EOS % 0.7 % (0.0-3.0); HEMATOCRIT 37.8 % (36.0-47.0); HEMOGLOBIN 12.6 g/dl (12.0-15.5); LYMPH # 1.8 10^3/uL (1.5-5.0); LYMPH % 26.4 % (24.0-44.0); MEAN CORPUSCULAR HEMOGLOBIN 31.3 pg (27.0-33.0); MEAN CORPUSCULAR HGB CONC 33.3 g/dl (32.0-36.5); MONO # 0.5 10^3/uL (0.0-0.8); MONO % 7.7 % (0.0-5.0); NEUTROPHILS # 4.4 10^3/uL (1.5-8.5); NEUTROPHILS % 64.3 % (36.0-66.0); PLATELET COUNT, AUTOMATED 290 10^3/uL (150-450); RED BLOOD COUNT 4.02 10^6/uL (4.00-5.40); WHITE BLOOD COUNT 6.9 10^3/uL (4.0-10.0)
[2020-05-20 17:53] LABS: ALBUMIN 3.5 GM/DL (3.2-5.2); ALT/SGPT 18 U/L (12-78); BILIRUBIN,TOTAL 0.3 MG/DL (0.2-1.0); BLOOD UREA NITROGEN 12 MG/DL (7-18); C REACTIVE PROTEIN QUANTITATIV 2.07 MG/DL (0.00-0.30); CALCIUM LEVEL 8.9 MG/DL (8.5-10.1); CARBON DIOXIDE LEVEL 24 MEQ/L (21-32); CHLORIDE LEVEL 110 MEQ/L (98-107); CREATININE FOR GFR 0.92 MG/DL (0.55-1.30); ETHYL ALCOHOL (ETHANOL) < 0.003 % (0.000-0.010); GLOMERULAR FILTRATION RATE > 60.0 (>60); GLUCOSE, FASTING 95 MG/DL (70-100); POTASSIUM SERUM 4.7 MEQ/L (3.5-5.1); SODIUM LEVEL 141 MEQ/L (136-145)
[2020-05-20 18:00] LABS: ERYTHROCYTE SEDIMENTATION RATE 17 mm/hr (0-20)
[2020-05-20 18:57] VITALS: BP 104/56
== END 2020-05-20 18:57 | disposition short-term general hospital (02) ==
LOC: M ED 14:44
DX: G97.82 Other postprocedural complications and disorders of nervous system (principal); F33.9 Major depressive disorder, recurrent, unspecified; F41.9 Anxiety disorder, unspecified; F15.20 Other stimulant dependence, uncomplicated; Z88.5 Allergy status to narcotic agent
CPT/HCPCS: 80053; 85025; 85652; 86140; 87070; 87077; 87186; 87205; 96374; 99284; G0480; J2765

== ENCOUNTER → 2020-06-08 | Outpatient (REF) | payer OTHER ==
[2020-06-08 22:22] LABS: BASO # 0.1 10^3/uL (0.0-0.2); BASO % 1.2 % (0.0-1.0); EOS # 0.2 10^3/uL (0.0-0.5); HEMATOCRIT 34.5 % (36.0-47.0); HEMOGLOBIN 10.8 g/dl (12.0-15.5); LYMPH # 2.2 10^3/uL (1.5-5.0); LYMPH % 39.3 % (24.0-44.0); MEAN CORPUSCULAR HEMOGLOBIN 28.5 pg (27.0-33.0); MEAN CORPUSCULAR HGB CONC 31.3 g/dl (32.0-36.5); MONO # 0.4 10^3/uL (0.0-0.8); MONO % 6.7 % (0.0-5.0); NEUTROPHILS # 2.8 10^3/uL (1.5-8.5); NEUTROPHILS % 49.6 % (36.0-66.0); PLATELET COUNT, AUTOMATED 345 10^3/uL (150-450); RED BLOOD COUNT 3.79 10^6/uL (4.00-5.40); WHITE BLOOD COUNT 5.7 10^3/uL (4.0-10.0)
[2020-06-08 22:36] LABS: ALBUMIN 3.3 GM/DL (3.2-5.2); ALT/SGPT 25 U/L (12-78); BILIRUBIN,TOTAL 0.2 MG/DL (0.2-1.0); BLOOD UREA NITROGEN 14 MG/DL (7-18); CARBON DIOXIDE LEVEL 23 MEQ/L (21-32); CHLORIDE LEVEL 111 MEQ/L (98-107); CREATININE FOR GFR 0.77 MG/DL (0.55-1.30); GLOMERULAR FILTRATION RATE > 60.0 (>60); GLUCOSE, FASTING 104 MG/DL (70-100); POTASSIUM SERUM 4.1 MEQ/L (3.5-5.1); SODIUM LEVEL 141 MEQ/L (136-145); TOTAL PROTEIN 6.8 GM/DL (6.4-8.2)
[2020-06-08 22:59] LABS: ERYTHROCYTE SEDIMENTATION RATE 22 mm/hr (0-20)
== END ==
LOC: M LAB REF 22:06
PROVIDERS: ATTEND Internal Medicine Infectious Disease
DX: Z79.899 Other long term (current) drug therapy (principal)

== ENCOUNTER → 2020-06-13 | Outpatient (REF) | payer OTHER ==
[2020-06-13 18:41] LABS: BASO # 0.1 10^3/uL (0.0-0.2); BASO % 1.2 % (0.0-1.0); EOS # 0.2 10^3/uL (0.0-0.5); EOS % 3.3 % (0.0-3.0); HEMATOCRIT 33.1 % (36.0-47.0); HEMOGLOBIN 10.4 g/dl (12.0-15.5); LYMPH # 2.2 10^3/uL (1.5-5.0); LYMPH % 32.2 % (24.0-44.0); MEAN CORPUSCULAR HEMOGLOBIN 28.5 pg (27.0-33.0); MEAN CORPUSCULAR HGB CONC 31.4 g/dl (32.0-36.5); MEAN CORPUSCULAR VOLUME 90.7 fl (80.0-96.0); MONO # 0.4 10^3/uL (0.0-0.8); NEUTROPHILS # 3.8 10^3/uL (1.5-8.5); NEUTROPHILS % 57.2 % (36.0-66.0); PLATELET COUNT, AUTOMATED 286 10^3/uL (150-450); RED BLOOD COUNT 3.65 10^6/uL (4.00-5.40); WHITE BLOOD COUNT 6.7 10^3/uL (4.0-10.0)
[2020-06-13 19:02] LABS: ERYTHROCYTE SEDIMENTATION RATE 14 mm/hr (0-20)
[2020-06-13 19:20] LABS: ALBUMIN 3.3 GM/DL (3.2-5.2); ALT/SGPT 18 U/L (12-78); BILIRUBIN,TOTAL 0.1 MG/DL (0.2-1.0); BLOOD UREA NITROGEN 10 MG/DL (7-18); CALCIUM LEVEL 8.3 MG/DL (8.5-10.1); CARBON DIOXIDE LEVEL 23 MEQ/L (21-32); CHLORIDE LEVEL 110 MEQ/L (98-107); CREATININE FOR GFR 0.78 MG/DL (0.55-1.30); GLOMERULAR FILTRATION RATE > 60.0 (>58); GLUCOSE, FASTING 124 MG/DL (70-100); POTASSIUM SERUM 4.1 MEQ/L (3.5-5.1); SODIUM LEVEL 139 MEQ/L (136-145); TOTAL PROTEIN 6.6 GM/DL (6.4-8.2)
== END ==
LOC: M LAB REF 18:28
PROVIDERS: ATTEND Internal Medicine Infectious Disease
DX: Z79.899 Other long term (current) drug therapy (principal)

== ENCOUNTER → 2021-01-12 | Outpatient (CLI) | payer OTHER ==
--- NOTE | 2021-01-12 10:46 | REP ---
INDICATION: HEAD TRAUMA, R/O SDH. History of craniotomy for tumor resection. History of wound infection after surgery. The patient gives a history of recent head trauma. COMPARISON: Comparison head CT studies are reviewed dated May 10, 2020, December 21, 2019, and May 20, 2009.. TECHNIQUE: Helical scanning is acquired. 5 mm axial images were reformatted. Coronal MPR images were generated. FINDINGS: Preliminary digital press manager radiograph and bone windows demonstrate a left frontal craniotomy. This is unchanged. There is encephalomalacia in the left frontal lobe underlying the craniotomy in the region where the December 21, 2019 CT study showed the low-density parenchymal lesion. No other bony calvarial defect is seen. No other parenchymal abnormality is seen intracranially. There is no evidence of intracranial hemorrhage. No extra-axial fluid collection is seen. No mass, acute infarct, or midline shift is observed. There is minimal scalp swelling in the right frontal region. No scalp hematoma is seen. IMPRESSION: Prior left frontal craniotomy with an underlying area of encephalomalacia post resection. There is no evidence of intracranial hemorrhage, infarct or mass. No acute intracranial abnormality.. <Electronically signed by Fabiano Higgins > 01/12/21 1045
== END ==
LOC: M PLAIMG 09:32
PROVIDERS: ATTEND Neurological Surgery
DX: T81.49XA Infection following a procedure, other surgical site, initial encounter (principal); D49.6 Neoplasm of unspecified behavior of brain; M48.02 Spinal stenosis, cervical region; M54.2 Cervicalgia

== ENCOUNTER 2021-12-03 10:56 | Emergency (ER) | payer OTHER ==
[~2021-12-03] VITALS: Ht 160 cm; Wt 72.0 kg
[2021-12-03] MEDS ORDERED: KETOROLAC 30 MG/ML 1ML VIAL IV ONE (12:05)
[2021-12-03] MEDS ORDERED: ACETAMINOPHEN 500 MG TAB PO ONE (12:05)
[2021-12-03] MEDS ORDERED: NS 1,000 ML IV ONE (12:05)
[2021-12-03] MEDS ORDERED: METOCLOPRAMIDE INJ 10MG/2ML VIAL (J2765 PER 1) IV ONE (12:05)
[2021-12-03 14:15] VITALS: BP 135/70
== END 2021-12-03 14:35 | disposition home or self-care (01) ==
LOC: M ED 10:56
DX: R51.9 Headache, unspecified (principal); S09.90XA Unspecified injury of head, initial encounter; W01.0XXA Fall on same level from slipping, tripping and stumbling without subsequent striking against object, initial encounter; Y92.018 Other place in single-family (private) house as the place of occurrence of the external cause; F33.9 Major depressive disorder, recurrent, unspecified; Z87.820 Personal history of traumatic brain injury; F17.210 Nicotine dependence, cigarettes, uncomplicated
CPT/HCPCS: 70450; 72125; 96361; 96374; 96375; 99284; J1885; J2765

== ENCOUNTER → 2022-01-12 | Outpatient (REF) | payer OTHER | LOC: M LAB REF 08:01 | PROVIDERS: ATTEND Otolaryngology | DX: D10.39 Benign neoplasm of other parts of mouth (principal) ==

== ENCOUNTER → 2022-05-19 | Outpatient (REF) | payer OTHER | LOC: M PLALAB 11:05 | PROVIDERS: ATTEND Nurse Practitioner Family | DX: Z12.4 Encounter for screening for malignant neoplasm of cervix (principal); Z11.3 Encounter for screening for infections with a predominantly sexual mode of transmission ==

== ENCOUNTER → 2022-08-25 | Outpatient (REF) | payer OTHER | LOC: M PLALAB 11:33 | PROVIDERS: ATTEND Nurse Practitioner Family | DX: Z53.9 Procedure and treatment not carried out, unspecified reason (principal) ==

== ENCOUNTER 2023-10-27 21:26 | Inpatient (IN) | payer MEDICAID, OTHER ==
[~2023-10-27] VITALS: Ht 157.5 cm; Wt 50.0 kg
[2023-10-27] MEDS: NS 1,000 ML IV ONE (21:30)
[2023-10-27 22:06] LABS: BASO # 0.1 10^3/uL (0.0-0.2); BASO % 0.8 % (0.0-1.0); EOS # 0.2 10^3/uL (0.0-0.5); EOS % 2.3 % (0.0-3.0); HEMATOCRIT 46.6 % (36.0-47.0); LYMPH # 2.7 10^3/uL (1.5-5.0); LYMPH % 37.1 % (24.0-44.0); MEAN CORPUSCULAR HEMOGLOBIN 32.5 pg (27.0-33.0); MEAN CORPUSCULAR HGB CONC 34.3 g/dl (32.0-36.5); MEAN CORPUSCULAR VOLUME 94.5 fl (80.0-96.0); MONO # 0.4 10^3/uL (0.0-0.8); MONO % 4.9 % (2.0-8.0); NEUTROPHILS % 54.8 % (36.0-66.0); PLATELET COUNT, AUTOMATED 296 10^3/uL (150-450); RED BLOOD COUNT 4.93 10^6/uL (4.00-5.40); WHITE BLOOD COUNT 7.4 10^3/uL (4.0-10.0)
[2023-10-27 22:24] LABS: ETHYL ALCOHOL (ETHANOL) < 0.003 % (0.000-0.010)
[2023-10-27 22:25] LABS: SALICYLATE LEVEL < 3.0 MG/DL (<30)
[2023-10-27 22:26] LABS: ALKALINE PHOSPHATASE 69 U/L (46-116); ALT/SGPT 20 U/L (7.0-40); AST/SGOT 17 U/L (<34); BILIRUBIN,DIRECT < 0.1 MG/DL (<0.4); BILIRUBIN,TOTAL 0.2 MG/DL (0.3-1.2); BLOOD UREA NITROGEN 14 MG/DL (9-23); CARBON DIOXIDE LEVEL 27 MMOL/L (20-31); CHLORIDE LEVEL 106 MMOL/L (98-107); CREATININE FOR GFR 1.22 MG/DL (0.55-1.30); GLOMERULAR FILTRATION RATE 51.2 (>58); GLUCOSE, FASTING 98 MG/DL (60-100); POTASSIUM SERUM 4.4 MMOL/L (3.5-5.1); SODIUM LEVEL 139 MMOL/L (136-145); TOTAL PROTEIN 6.6 G/DL (5.7-8.2)
[2023-10-27 22:28] LABS: THYROID STIMULATING HORMONE 0.712 uIU/ML (0.55-4.78)
[2023-10-27 22:31] LABS: CPK CREATINE PHOSPHOKINASE 126 U/L (34-145)
[2023-10-27] MEDS ORDERED: MED REC CURRENTLY UNOBTAINABLE XX SCH (23:35)
[2023-10-28 00:08] LABS: BARBITURATES URINE NEGATIVE (NEGATIVE); BENZODIAZEPINES URINE NEGATIVE (NEGATIVE); COCAINE METABOLITE URINE NEGATIVE (NEGATIVE); METHADONE URINE NEGATIVE (NEGATIVE)
[2023-10-28 00:09] LABS: CANNABINOIDS URINE NEGATIVE (NEGATIVE); OPIATES URINE NEGATIVE (NEGATIVE); PHENCYCLIDINE URINE NEGATIVE (NEGATIVE)
[2023-10-28 00:12] LABS: AMPHETAMINES LEVEL URINE POSITIVE (NEGATIVE)
[2023-10-28 04:48] LABS: APPEARANCE, URINE HAZY (CLEAR); BACTERIA, URINE AUTO 1+ (NEGATIVE); BILIRUBIN, URINE AUTO NEGATIVE (NEGATIVE); BLOOD, URINE BLOOD NEGATIVE (NEGATIVE); COLOR, URINE YELLOW (YELLOW); GLUCOSE, URINE (UA) AUTO NEGATIVE (NEGATIVE); KETONE, URINE AUTO NEGATIVE (NEGATIVE); LEUKOCYTE ESTERASE, URINE AUTO 3+ (NEGATIVE); MUCUS, URINE SMALL (NEGATIVE); NITRITE, URINE AUTO NEGATIVE (NEGATIVE); PROTEIN, URINE AUTO NEGATIVE (NEGATIVE); RBC, URINE AUTO 6 /HPF (0-3); SPECIFIC GRAVITY URINE AUTO 1.011 (1.002-1.035); SQUAMOUS EPITHELIAL CELL UR AU 8 /HPF (0-6); UROBILINOGEN, URINE AUTO 0.2 mg/dL (0.0-2.0); WBC, URINE AUTO 125 /HPF (0-3)
[2023-10-28] MEDS ORDERED: RIZA10TA2 PO (06:05)
[2023-10-28] MEDS ORDERED: NAPR-885 PO (06:05)
[2023-10-28] MEDS ORDERED: HOME MED LIST COMPLETE! XX SCH (06:05)
[2023-10-28] MEDS ORDERED: THERTAB52 PO (06:09)
[2023-10-28] MEDS: CIPROFLOXACIN 250MG TAB PO ONE (06:58)
[2023-10-28] MEDS ORDERED: MAALOX 30 ML SUSP *UDC PO PRN (07:00)
[2023-10-28] MEDS ORDERED: traZODone 50 MG TAB PO PRN (07:00)
[2023-10-28] MEDS ORDERED: diphenhydrAMINE 25MG CAP PO PRN (07:00)
[2023-10-28] MEDS ORDERED: MOM 30ML SUSPENSION UDC PO PRN (07:00)
[2023-10-28 09:12] VITALS: BP 100/52; TEMP 98.5; O2SAT 97
[2023-10-28] MEDS: ACETAMINOPHEN TAB 650MG DOSE (2X325MG) PO PRN (15:55)
[2023-10-28 16:22] VITALS: BP 108/60; TEMP 98.6; O2SAT 99
[2023-10-28] MEDS: IBUPROFEN 400MG TAB PO PRN (17:18)
[2023-10-29 06:13] VITALS: BP 143/63; TEMP 98; O2SAT 98
[2023-10-29 17:23] VITALS: BP 111/56; TEMP 99; O2SAT 97
[2023-10-30 06:09] VITALS: BP 103/48; TEMP 98.3; O2SAT 99
== END 2023-10-30 13:07 | disposition home or self-care (01) | DRG 753 ==
LOC: M ED 21:26 → EDBD 21:26 → M ED INP 10-28 06:59 → M PSY 10-28 09:16
PROVIDERS: ADMIT Psychiatry & Neurology Psychiatry; ATTEND Student in an Organized Health Care Education/Training Program
DX: F31.9 Bipolar disorder, unspecified (principal); F15.14 Other stimulant abuse with stimulant-induced mood disorder; F43.10 Post-traumatic stress disorder, unspecified; F41.9 Anxiety disorder, unspecified; T50.992A Poisoning by other drugs, medicaments and biological substances, intentional self-harm, initial encounter; F60.3 Borderline personality disorder; F17.210 Nicotine dependence, cigarettes, uncomplicated; M54.2 Cervicalgia; G89.29 Other chronic pain; T39.312A Poisoning by propionic acid derivatives, intentional self-harm, initial encounter; Z91.51 Personal history of suicidal behavior; Z88.5 Allergy status to narcotic agent; Z79.899 Other long term (current) drug therapy; Z91.410 Personal history of adult physical and sexual abuse; Z62.810 Personal history of physical and sexual abuse in childhood; Z56.0 Unemployment, unspecified; Z90.49 Acquired absence of other specified parts of digestive tract; Z81.8 Family history of other mental and behavioral disorders; Z63.5 Disruption of family by separation and divorce; Z62.811 Personal history of psychological abuse in childhood

== ENCOUNTER 2023-12-10 12:42 | Emergency (ER) | payer MEDICAID, OTHER ==
[~2023-12-10] VITALS: Ht 157.5 cm; Wt 48.2 kg
[~2023-12-10 12:42] MED LIST changes: +NAPR-885 PO; +RIZA10TA2 PO; +THERTAB52 PO
[2023-12-10 13:05] VITALS: BP 130/80; TEMP 97.4; O2SAT 100
== END 2023-12-10 16:26 | disposition left against medical advice (07) ==
LOC: EDBD 12:42 → M ED 12:42
DX: Z53.21 Procedure and treatment not carried out due to patient leaving prior to being seen by health care provider (principal)

== ENCOUNTER → 2025-02-02 | Outpatient (CLI) | payer OTHER ==
[~2025-02-02] MED LIST changes: -ZIPR80CA12 PO; +ZIPR80CA31 PO
[2025-02-02 14:21] LABS: PLATELET COUNT, AUTOMATED 261 10^3/uL (150-450)
[2025-02-02 14:45] LABS: ALT/SGPT 18.0 U/L (7.0-40); AST/SGOT 17.0 U/L (<34); CALCIUM LEVEL 8.7 MG/DL (8.5-10.1); CARBON DIOXIDE LEVEL 26.0 MMOL/L (20-31); CHLORIDE LEVEL 108.0 MMOL/L (98-107); CHOLESTEROL LEVEL 149.0 MG/DL (<200); CHOLESTEROL RISK RATIO 2.6 (<5); CREATININE FOR GFR 0.86 MG/DL (0.55-1.30); GLOMERULAR FILTRATION RATE 85.4 (>58); LDL CHOLESTEROL 73.2 MG/DL (<100); NON-HDL-C 91.8 MG/DL; POTASSIUM SERUM 4.2 MMOL/L (3.5-5.1); SODIUM LEVEL 144.0 MMOL/L (136-145); TRIGLYCERIDES LEVEL 93.0 MG/DL (<150)
[2025-02-02 15:26] LABS: ESTIMATED AVERAGE GLUCOSE 94.0 MG/DL (60-110)
== END ==
LOC: M WUC 11:16
DX: F43.12 Post-traumatic stress disorder, chronic (principal)

== ENCOUNTER 2025-04-09 08:36 | Emergency (ER) | payer OTHER ==
[~2025-04-09] VITALS: Ht 165.1 cm; Wt 67.3 kg
[2025-04-09] MEDS ORDERED: HYDR1CAP25 (08:43)
[2025-04-09] MEDS ORDERED: LURA40TA2 (08:43)
[2025-04-09] MEDS ORDERED: ACET-683 PO (08:43)
[2025-04-09] MEDS ORDERED: PRAZ1CAP (08:43)
[2025-04-09] MEDS ORDERED: ISOVUE-370 76% 100 ML VIAL As Ordered ONE (09:26)
[2025-04-09 09:31] LABS: PLATELET COUNT, AUTOMATED 295 10^3/uL (150-450)
[2025-04-09] MEDS: KETOROLAC 30 MG/ML 1 ML VIAL IV ONE ×2 (10:29→11:22)
[2025-04-09] MEDS ORDERED: PROHANCE 279.3MG/ML 15ML VIAL As Ordered ONE (14:04)
[2025-04-09] MEDS ORDERED: NAPR-837 PO (15:55)
[2025-04-09] MEDS ORDERED: RIZA10TA58 PO (15:55)
[2025-04-09 16:13] VITALS: BP 109/68; TEMP 98; O2SAT 98
== END 2025-04-09 16:30 | disposition home or self-care (01) ==
LOC: M ED 08:36
DX: G43.119 Migraine with aura, intractable, without status migrainosus (principal); F41.9 Anxiety disorder, unspecified; F31.9 Bipolar disorder, unspecified
CPT/HCPCS: 70470; 70553; 80047; 85027; 96374; 96375; 99284; A9576; J1885; J2765; Q9967